=== PATIENT | male | born 1955 | race Caucasian/White ===

== ENCOUNTER 2016-08-08 16:15 | Emergency (ER) | payer OTHER ==
[~2016-08-08] VITALS: Ht 182.9 cm; Wt 120.2 kg
[~2016-08-08 16:15] MED LIST: AZOR 5 MG-20 MG1 TAB PO; GABAPENTIN; PERCOCET; SIMVASTATIN5 M1 PO
--- NOTE | 2016-08-08 17:21 | NUR ---
PRESENTS TO ER W/C/O BACK PAIN. PT STATES HE HAS CHRONIC PAIN AND IS UNABLE TO REFILL HIS PAIN MEDICATION UNTIL TOMORROW AND HAS SEVERE PAIN. HX SPINAL CORD INJURY, DM, SEIZURE DISORDER, HTN; DENIES N/V/D; SKIN IS PINK/WARM/DRY; AAOX4 WITH EVEN AND STEADY GAIT; LUNGS CLEAR BL; HR EVEN AND REGULAR; PT DENIES ANY FEVER, CP, SOB, OR COUGH AT THIS TIME; PATIENT STATES PAIN OF 10/10 AT THIS TIME; VSS; PATIENT POSITIONED FOR COMFORT; HOB ELEVATED; BEDRAILS UP X2; BED DOWN. ER MD MADE AWARE OF PT STATUS.
[2016-08-08] MEDS ORDERED: KETOROLAC 60 MG/2 ML VIAL IM ONE (18:00)
[2016-08-08] MEDS ORDERED: HYDROcodone/APAP 5/325 MG 1 TAB TAB PO ONE (18:00)
--- NOTE | 2016-08-08 19:13 | NUR ---
REPORT GIVEN TO ELI TROY
[2016-08-08] MEDS ORDERED: ALBUTEROL SULFATE/IPRATROPIU 3 ML SOL IH ONE (19:25)
[2016-08-08] MEDS ORDERED: HYDROmorphone 1 MG/ML AMP IM ONE (19:25)
--- NOTE | 2016-08-08 19:33 | NUR ---
REPORT GIVEN TO ELI FRANCISCO. TRANSFER OF CARE AT THIS TIME
--- NOTE | 2016-08-08 19:34 | NUR ---
RECEIVED REPORT FROM ELI TROY FOR TRANSFER OF CARE.
[2016-08-08 20:08] VITALS: BP 148/88
--- NOTE | 2016-08-08 20:08 | NUR ---
Patient discharged with v/s stable. Written and verbal after care instructions given and explained. Patient alert, oriented and verbalized understanding of instructions. Ambulatory with steady gait. All questions addressed prior to discharge. ID band removed. Patient advised to follow up with PMD. NO Rx WERE given. Patient educated on indication of medication including possible reaction and side effects. Opportunity to ask questions provided and answered.
== END 2016-08-08 20:08 | disposition home or self-care (01) ==
LOC: MED 16:15
DX: M54.6 Pain in thoracic spine (principal); G89.29 Other chronic pain; M54.2 Cervicalgia; J45.909 Unspecified asthma, uncomplicated; E11.9 Type 2 diabetes mellitus without complications; I10 Essential (primary) hypertension; F17.200 Nicotine dependence, unspecified, uncomplicated
CPT/HCPCS: 94640; 96372; 99284; J1170; J1885; J7620

== ENCOUNTER 2017-02-21 17:35 | Inpatient (IN) | payer OTHER ==
[~2017-02-21] VITALS: Ht 182.9 cm; Wt 115.2 kg
[~2017-02-21 17:35] MED LIST changes: +AMLO1TAB32 PO; -AZOR 5 MG-20 MG1 TAB PO; +SIMV5TAB6 PO; -SIMVASTATIN5 M1 PO
--- NOTE | 2017-02-21 17:35 | NUR ---
PATIENT BIBA TO BED 3 AT THIS TIME.
[2017-02-21 17:43] VITALS: BP 189/88
[2017-02-21] MEDS ORDERED: NACL 0.9% 500 ML IV ONE ×2 (17:45)
[2017-02-21] MEDS ORDERED: MORP30CE21 PO (17:54)
[2017-02-21] MEDS ORDERED: [UNRECOGNIZED DRUG - CODE] PO (17:54)
[2017-02-21] MEDS ORDERED: CELE200C PO (17:54)
[2017-02-21] MEDS ORDERED: LEVE1000 PO (17:54)
[2017-02-21] MEDS ORDERED: ACET-5636 PO (17:54)
[2017-02-21] MEDS ORDERED: CLON0.1T79 PO (17:54)
[2017-02-21] MEDS ORDERED: METF100028 PO (17:54)
[2017-02-21] MEDS ORDERED: DILT120C10 PO (17:54)
[2017-02-21] MEDS ORDERED: GLIP10TA12 PO (17:54)
[2017-02-21] MEDS ORDERED: GEMF600T6 PO (17:54)
[2017-02-21] MEDS ORDERED: OMEP40EC1 PO (17:54)
[2017-02-21] MEDS ORDERED: GABA300C1 PO ×2 (17:54)
[2017-02-21] MEDS ORDERED: ESOM40EC PO (18:00)
[2017-02-21 18:47] LABS: HEMATOCRIT 45.9 % (36-52); HEMOGLOBIN 15.4 g/dL (12.0-18.0); MEAN CORPUSCULAR HEMOGLOBIN 30 pg (27-31); MEAN CORPUSCULAR HGB CONC 34 g/dL (33-37); MEAN CORPUSCULAR VOLUME 90 fL (80-94); PLATELET COUNT (AUTO) 218 K/uL (140-450); RED BLOOD CELL COUNT(AUTO) 5.09 MIL/uL (4.20-6.10); RED CELL DISTRIBUTION WIDTH 15.7 % (11.6-13.7); WHITE BLOOD COUNT (AUTO) 11.5 K/uL (4.8-10.8)
[2017-02-21] MEDS ORDERED: KETOROLAC 30 MG/ML VIAL IVP ONE (18:50)
[2017-02-21 19:15] LABS: LYMPHOCYTES % (MANUAL) 13 % (20-46); METAMYELOCYTES % 1 % (0-0); MONOCYTES % (MANUAL) 4 % (5-12); MYELOCYTES % 3 % (0-0); PROMYELOCYTES % 1 % (0-0)
[2017-02-21 19:20] LABS: ANION GAP 15.9 (8-16); CREATININE 0.9 mg/dL (0.7-1.3); POTASSIUM 4.9 mmol/L (3.5-5.1); TOTAL BILIRUBIN 22.8 mg/dL (0.0-1.0)
[2017-02-21] MEDS ORDERED: MORPHINE SULFATE 4 MG/ML SYR IVP ONE (19:30)
[2017-02-21] MEDS ORDERED: NACL 0.9% 1,000 ML IV ONE (19:30)
[2017-02-21] MEDS ORDERED: cefTRIAXone 1,000 MG VIAL ONE ×2 (20:10→23:00)
--- NOTE | 2017-02-21 20:26 | NUR ---
ASSUMED CARE FOR CLIENT,CLIENT C/O ABDOMINAL/BLADDER/LOWER BACK PAIN,CLIENT SQUIRMING AROUND IN BLEED,ACCIDENTLY PULL OUT 1 OF 2 IV SITE.CLIENT CLEANED UP,STRAIGHT CATH CHANGED TO SAUER PER DR. NEIL,CLIENT ADMITTED,URINE SAMPLE ATTAINED,PRE-LABBED,IV FLUIDS 1 LITER STARTED,CLIENT MEDICATED FOR PAIN,AND INFECTION
[2017-02-21] MEDS: NACL 0.9% 1,000 ML IV SCH (20:32)
[2017-02-21] MEDS ORDERED: MORPHINE SULFATE 2 MG/ML SYR IVP PRN (20:35)
[2017-02-21] MEDS ORDERED: HYDROcodone/APAP 7.5/325 MG 1 TAB PO PRN (20:35)
[2017-02-21] MEDS ORDERED: DOCUSATE SODIUM 100 MG GELCAP PO PRN (20:35)
[2017-02-21] MEDS ORDERED: ACETAMINOPHEN 325 MG TAB PO PRN (20:35)
[2017-02-21] MEDS ORDERED: ONDANSETRON 4 MG/2 ML VIAL IM/IVP PRN (20:35)
[2017-02-21] MEDS ORDERED: KETOROLAC 30 MG/ML VIAL IVP PRN (20:40)
[2017-02-21 21:11] LABS: CHOL/HDL RATIO 9.3 (1-4.5); FREE T4 (FREE THYROXINE) 2.12 ng/dL (0.76-1.46); MAGNESIUM 1.3 mg/dL (1.8-2.4); PHOSPHORUS 1.5 mg/dL (2.5-4.9); THYROID STIMULATING HORMONE 0.34 uIU/mL (0.34-3.74)
--- NOTE | 2017-02-21 21:33 | NUR ---
REPORT GIVEN TO T[employer] ASSIGNMENT EDITOR NURSE,CLIENT IS ADMITTED.CLIENT REMAINS ALERT & ORIENTED X3,SOMEAGITATION NOTED,PAIN LEVEL 3-4/10 AT THIS TIME DOWN FROM 9-10 PER CLIENT.VITAL SIGNS STABLE AND INPROVE MORE CLIENT STAY.HL24 G LEFT THUMB INTACT
--- NOTE | 2017-02-21 21:40 | NUR ---
PT CAME IN FROM ER VIA [facility]. PT IS AAOX3, HE IS ON ROOM AIR. PT SKIN IS INTACT, BUT PT IS JAUNDICED, EYES ARE YELLOW TOO. PT HAS 24 GAUGE IV TO THE LEFT THUMB. PT HAS A SAUER CATHETER IN PLACE DRAINING URINE THAT IS VERY DARK IN COLOR. DISCUSSED PLAN OF CARE WITH PT, PT VERBALIZED UNDERSTANDING. BED IN LOW POSITION, CALL LIGHT WITHIN REACH. WILL CONTINUE TO MONITOR.
[2017-02-21] MEDS ORDERED: [UNRECOGNIZED DRUG - OTHER] PO SCH (21:55)
[2017-02-21 22:18] LABS: APPEARANCE,URINE HAZY (CLEAR); BILIRUBIN,URINE 3+ (NEGATIVE); BLOOD, URINE 2+ (NEGATIVE); COLOR,URINE BROWN (YELLOW); LEUKOCYTE ESTERASE ,URINE NEGATIVE (NEGATIVE); NITRITE, URINE NEGATIVE (NEGATIVE); PH,URINE 5.5 (5.0-9.0); UGLUCOSE NEGATIVE (NEGATIVE)
[2017-02-21] MEDS ORDERED: MAG SULF 2000 MG/WATER PREMIX 50 ML IV ONE (22:25)
[2017-02-21] MEDS ORDERED: SODIUM PHOSPHATE 15 MMOLE in NACL 0.9% 250 ML IV ONE (22:25)
[2017-02-21 22:42] LABS: RBC,URINE 3-10 (FEW) /HPF (0-5); WBC,URINE 0-5 (RARE) /HPF (0-5)
[2017-02-21 22:43] LABS: COARSE GRANULAR CASTS,URINE 0-10 /LPF (None Seen); HYALINE CASTS, URINE 0-10 /LPF (None Seen)
[2017-02-21 22:45] LABS: BARBITURATE, URINE NEG. ng/ml (NEG <=200); BENZODIAZEPINE, URINE NEG. ng/mL (NEG <=200); CANNABINOID, URINE POS. ng/mL (NEG <=50); COCAINE, URINE NEG. ng/mL (NEG <=300); OPIATE, URINE POS. ng/mL (NEG <=2000); PHENCYCLIDINE SCREEN,URINE NEG. ng/mL (NEG <=25)
--- NOTE | 2017-02-21 23:05 | NUR ---
ASIYA BENSON TOOK PT FOR HEAD CT VIA [employer]. PT IN STABLE CONDITION.
[2017-02-21] MEDS ORDERED: LACTULOSE 20 GM/30 ML UDC PO SCH (23:10)
--- NOTE | 2017-02-21 23:30 | NUR ---
PT BACK IN ROOM FROM HEAD CT. PT STABLE, WITHOUT SIGNS OF DISTRESS. BED IN LOW POSITION, CALL LIGHT WITHIN REACH. WILL CONTINUE TO MONITOR.
[2017-02-22] VITALS: BP 154/75
[2017-02-22] MEDS ORDERED: LACTULOSE 20 GM/30 ML UDC PO SCH ×3 (01:20→09:00)
[2017-02-22] MEDS: LACTULOSE 20 GM/30 ML UDC PO SCH ×4 (01:26→16:09)
[2017-02-22] MEDS: NACL 0.9% 1,000 ML IV SCH ×2 (01:32→06:29)
--- NOTE | 2017-02-22 01:35 | NUR ---
PT WAS IN A LOT OF PAIN. ADMINISTERED TORADOL VIA IV. PT TOLERATED WELL. PT IN STABLE CONDITION. NO SIGNS OF DISTRESS NOTED. BED IN LOW POSITION, CALL LIGHT WITHIN REACH. WILL CONTINUE TO MONITOR.
--- NOTE | 2017-02-22 03:35 | NUR ---
PT SLEEPING, IN STABLE CONDITION, NO SIGNS OF DISTRESS NOTED. BED IN LOW POSITION, CALL LIGHT WITHIN REACH. WILL CONTINUE TO MONITOR.
[2017-02-22 04:00] VITALS: BP 129/88
--- NOTE | 2017-02-22 05:42 | NUR ---
PT IS AGITATED, PT PULLED OUT IV. THERE WAS BLOOD AND VOMIT ON THE FLOOR AND SHEETS. CHANGED SHEETS, AND CLEANED SPOTS OFF FLOOR. PT THEN REQUESTED FOR HELP AMBULATING TO THE RESTROOM, WHERE HE HAD A BOWEL MOVEMENT. PT THEN RETURNED SAFELY TO BED. BED IN LOW POSITION, CALL LIGHT WITHIN REACH. WILL CONTINUE TO MONITOR.
[2017-02-22 06:22] LABS: HEMATOCRIT 44.5 % (36-52); HEMOGLOBIN 14.7 g/dL (12.0-18.0); MEAN CORPUSCULAR HEMOGLOBIN 30 pg (27-31); MEAN CORPUSCULAR HGB CONC 33 g/dL (33-37); MEAN CORPUSCULAR VOLUME 91 fL (80-94); PLATELET COUNT (AUTO) 256 K/uL (140-450); RED BLOOD CELL COUNT(AUTO) 4.91 MIL/uL (4.20-6.10); RED CELL DISTRIBUTION WIDTH 15.9 % (11.6-13.7); WHITE BLOOD COUNT (AUTO) 15.1 K/uL (4.8-10.8)
--- NOTE | 2017-02-22 06:29 | NUR ---
NATE FROM ER STARTED A 22 GAUGE IV ON THE PATIENT'S RIGHT THUMB. PT IS STABLE, NO SIGNS OF DISTRESS NOTED. BED IN LOW POSITION, CALL LIGHT WITHIN REACH. WILL CONTINUE TO MONITOR.
[2017-02-22 06:36] LABS: PROTHROMBIN TIME 39.9 secs (10.8-13.4)
[2017-02-22 07:05] LABS: ALBUMIN 2.8 g/dL (3.4-5.0); ANION GAP 19.8 (8-16); CARBON DIOXIDE 21.7 mmol/L (21-32); CREATININE 1.1 mg/dL (0.7-1.3); MAGNESIUM 1.8 mg/dL (1.8-2.4); PHOSPHORUS 2.3 mg/dL (2.5-4.9); POTASSIUM 4.5 mmol/L (3.5-5.1); TOTAL BILIRUBIN 22.4 mg/dL (0.0-1.0)
--- NOTE | 2017-02-22 07:20 | NUR ---
ENDORSED PT TO DAY SHIFT RN FOR CONTINUITY OF CARE, PT IN STABLE CONDITION.
--- NOTE | 2017-02-22 07:21 | NUR ---
RECEIVED HANDOFF REPORT FROM PM RN. PATIENT A&OX1. PATIENT SLEEPING. IV SITE PATENT AND INTACT. SAUER PATENT AND INTACT. SAFETY MEASURES ENSURED. CALL LIGHT WITHIN REACH. WILL CONTINUE TO MONITOR.
[2017-02-22 07:55] LABS: LYMPHOCYTES % (MANUAL) 7 % (20-46); MONOCYTES % (MANUAL) 4 % (5-12)
[2017-02-22 08:00] VITALS: BP 160/76
[2017-02-22] MEDS: DEXT 5% / NACL 0.45% 1,000 ML IV SCH ×4 (08:05→23:05)
[2017-02-22] MEDS ORDERED: DEXTROSE 50% 50 ML SYR IVP PRN (08:15)
[2017-02-22] MEDS ORDERED: KETOROLAC 30 MG/ML VIAL IVP PRN (08:15)
[2017-02-22] MEDS: PANTOPRAZOLE 40 MG TABEC PO SCH (09:00)
[2017-02-22] MEDS ORDERED: glipiZIDE 10 MG TAB PO SCH (09:00)
[2017-02-22] MEDS ORDERED: levETIRAcetam 500 MG TAB PO SCH (09:00)
[2017-02-22] MEDS ORDERED: GABAPENTIN 300 MG CAP PO SCH ×2 (09:00→21:00)
[2017-02-22] MEDS ORDERED: GEMFIBROZIL 600 MG TAB PO SCH ×2 (09:00)
[2017-02-22] MEDS ORDERED: metFORMIN 500 MG TAB PO SCH (09:00)
[2017-02-22] MEDS ORDERED: DILTIAZEM 120 MG CAPER PO SCH (09:00)
[2017-02-22] MEDS ORDERED: CELECOXIB 100 MG CAP PO SCH ×2 (09:00)
[2017-02-22] MEDS ORDERED: DILTIAZEM HCL PO SCH (09:00)
[2017-02-22] MEDS: DILTIAZEM 120 MG CAPER PO SCH (09:34)
[2017-02-22] MEDS: LACTOBACILLUS RHAMNOSUS GG 1 EACH CAP PO SCH (09:34)
--- NOTE | 2017-02-22 09:35 | NUR ---
AM MEDICATIONS GIVEN WITH EDUCATION. PT UNABLE TO COMPREHEND. PT UNABLE TO SWALLOW PILLS AT THIS TIME. PT HAS NO PROBLEM SWALLOWING LIQUIDS. AM MEDS CRUSHED AND ADMINISTERED. KEPPRA AND PROTONIX HELD DUE TO UNABLE TO CRUSH. DR. MCDANIEL MADE AWARE.
--- NOTE | 2017-02-22 09:49 | NUR ---
PATIENT HAS BEEN SCREENED AND CATEGORIZED HIGH NUTRITION RISK. PATIENT WILL BE SEEN WITHIN 1-2 DAYS OF ADMISSION. 02/22/17-02/23/[address]
[2017-02-22] MEDS: levETIRAcetam 1,000 MG in NACL 0.9% 100 ML IV SCH ×2 (11:35→21:42)
[2017-02-22] MEDS: BLOOD GLUCOSE MONITORING 1 DEV DEV FS SCH ×3 (11:48→20:37)
--- NOTE | 2017-02-22 11:56 | NUR ---
02/22/17 RD INITIAL ASSESSMENT COMPLETED PLEASE REFER TO NUTRITION ASSESSMENT UNDER CARE ACTIVITY FOR ESTIMATED NUTRITIONAL NEEDS. 1. CONTINUE NPO DIET 2. WHEN MEDICALLY FEASIBLE, INITIATE CLEAR LIQUID DIET ADVANCE TOLERATE TO LOW FAT DIET 3. RD TO FOLLOW UP WITHIN 2-3 DAYS; HIGH RISK KLARISSA AL, AYAN
[2017-02-22 12:00] VITALS: BP 183/94
[2017-02-22] MEDS ORDERED: cloNIDine 0.1 MG TAB PO SCH ×2 (12:00→13:00)
[2017-02-22] MEDS: cloNIDine 0.1 MG TAB PO SCH ×3 (12:42→20:10)
[2017-02-22] MEDS: GABAPENTIN 300 MG CAP PO SCH (12:46)
--- NOTE | 2017-02-22 12:53 | NUR ---
DISCONTINUED SAUER PER MD. URINE DARK WOODROW IN COLOR 600ML. NO SIGNS OR SYMPTOMS OF ACUTE DISTERSS NOTED. PATIENT TOLERATED WELL. CALL LIGHT WITHIN REACH WILL CONTINUE TO MONITOR.
[2017-02-22] MEDS ORDERED: SODIUM PHOS / POTASSIUM PHOS 1 PKT PDR PO SCH (15:15)
[2017-02-22 16:00] VITALS: BP 153/87
[2017-02-22] MEDS: metFORMIN 500 MG TAB PO SCH (16:09)
--- NOTE | 2017-02-22 16:22 | NUR ---
PATIENT AWAKE IN BED. FLACC 0. NO SIGNS OR SYMPTOMS OF ACUTE DISTRESS NOTED. IV OUT, WILL INSERT NEW ONE. CALL LIGHT WITHIN REACH. WILL CONTINUE TO MONITOR.
--- NOTE | 2017-02-22 19:24 | NUR ---
ENDORSED PLAN OF CARE TO PM RN. PATIENT STABLE. NO SIGNS OR SYMPTOMS OF ACUTE DISTRESS NOTED. CALL LIGHT WITHIN REACH.
--- NOTE | 2017-02-22 19:30 | NUR ---
RECEIVED REPORT FROM DAY RN, PATIENT IS AWAKE AND CONFUSED, NO S/S OF ACUTE DISTRESS NOTED, RESPIRATION EVEN AND UNLABORED. NO IV ACCESS AT THIS TIME, CHARGE NURSE IS AWARE. CALL LIGHT WITHIN REACH, INFORMED PATIENT TO USE CALL LIGHT WHENEVER HE NEEDS TO USE THE BATHROOM. BED IS AT THE LOWEST POSITION, SIDE RAILS UP X2, WILL CONTINUE TO MONITOR.
[2017-02-22 20:00] VITALS: BP 144/75
--- NOTE | 2017-02-22 20:53 | NUR ---
NEW IV 22G STARTED ON RT FOREARM. BS 48, DEXTROSE 50% IVP GIVEN, REASSESS THE BS, READ 174. PATIENT IS RESTING IN BED, NO S/S OF ACUTE DISTRESS, RESPIRATION EVEN AND UNLABORED, WILL CONTINUE TO MONITOR.
[2017-02-22] MEDS ORDERED: levETIRAcetam 1,000 MG in NACL 0.9% 100 ML IV SCH (21:00)
--- NOTE | 2017-02-22 23:56 | NUR ---
NOTED PATIENT VOIDED IN THE BED, ASSISTED DIVISION FIELD INSPECTOR CHANGED GOWN, AND BED LINEN, REPOSITIONED PATIENT TO HIS COMFORTABLE POSITION. RESPIRATION EVEN AND UNLABORED, WILL CONTINUE TO MONITOR.
[2017-02-23] VITALS: BP 150/76
--- NOTE | 2017-02-23 01:23 | NUR ---
PT IS SLEEPING AT THIS TIME. NO S/S OF ACUTE DISTRESS NOTED, RESPIRATION EVEN AND UNLABORED, CALL LIGHT WITHIN REACH, SAFETY MEASURE ENSURED, WILL CONTINUE TO MONITOR.
--- NOTE | 2017-02-23 02:15 | NUR ---
NOTED HEART RATE 133. MADE DR. MENDES AWARE.
--- NOTE | 2017-02-23 02:17 | NUR ---
DR. MENDES AT BEDSIDE ASSESS THE PATIENT.
[2017-02-23] MEDS ORDERED: ADENOSINE 6 MG/2 ML VIAL IVP SCH (02:55)
[2017-02-23] MEDS ORDERED: DILTIAZEM 25 MG/5 ML VIAL IVP ONE ×4 (03:10→04:05)
--- NOTE | 2017-02-23 03:25 | NUR ---
PER DR. MENDES GIVE CARDIZEM 10MG IV
--- NOTE | 2017-02-23 03:39 | NUR ---
BP 152/90, HR 150. O2SAT 96%
[2017-02-23 04:00] VITALS: BP 140/74
--- NOTE | 2017-02-23 04:16 | NUR ---
BP 140/74, HR 93, O2SAT 96%, RR 20, T98.3. CALL LIGHT WITHIN REACH, SAFETY MEASURE ENSURED, WILL CONTINUE TO MONITOR.
[2017-02-23] MEDS: DEXT 5% / NACL 0.45% 1,000 ML IV SCH ×2 (04:22→09:35)
[2017-02-23 06:15] LABS: HEMATOCRIT 43.8 % (36-52); HEMOGLOBIN 14.5 g/dL (12.0-18.0); MEAN CORPUSCULAR HEMOGLOBIN 30 pg (27-31); MEAN CORPUSCULAR HGB CONC 33 g/dL (33-37); MEAN CORPUSCULAR VOLUME 90 fL (80-94); PLATELET COUNT (AUTO) 254 K/uL (140-450); RED BLOOD CELL COUNT(AUTO) 4.87 MIL/uL (4.20-6.10); RED CELL DISTRIBUTION WIDTH 16.8 % (11.6-13.7); WHITE BLOOD COUNT (AUTO) 11.2 K/uL (4.8-10.8)
--- NOTE | 2017-02-23 06:20 | NUR ---
PATIENT STATED, "PAIN" AND INDICATED PAIN LEVEL 5/10, HE POINTED THE AREA AROUND STOMACH WELL. PAIN MEDICATION GIVEN ORDERED. WILL CONTINUE TO MONITOR.
[2017-02-23 06:22] LABS: T4 (THYROXINE) 11.1 ug/dL (4.5-12.0)
[2017-02-23] MEDS: BLOOD GLUCOSE MONITORING 1 DEV DEV FS SCH ×4 (06:34→18:22)
[2017-02-23 06:36] LABS: ANION GAP 14.2 (8-16); CARBON DIOXIDE 24.6 mmol/L (21-32); CREATININE 1.1 mg/dL (0.7-1.3); POTASSIUM 3.8 mmol/L (3.5-5.1)
[2017-02-23] MEDS: INSULIN LISPRO SLIDING SCALE 100 UNITS/ML VIAL SUBQ PRN (06:40)
[2017-02-23 06:48] LABS: MAGNESIUM 1.7 mg/dL (1.8-2.4)
--- NOTE | 2017-02-23 07:24 | NUR ---
ENDORSED THE PLAN OF CARE TO DAY RN. PATIENT IS SLEEPING AND IN STABLE CONDITION, NO ACUTE DISTRESS AND RESPIRATION EVEN AND UNLABORED.
--- NOTE | 2017-02-23 07:25 | NUR ---
RECEIVED REPORT FROM THE SOUND PERSON NURSE AT BEDSIDE FOR CONTINUITY OF CARE. PT IS SOUND ASLEEP. WILL COME BACK TO ASSESS PT. PER RN, PT IS CONFUSED, AOX1 OR 2. PT KNOWS HIS NAME AND ABLE TO LET US KNOW IF HE NEEDS PAIN MEDS. BUT OTHER ELSE. PER RN, PT HAD AN EPISODE OF PVC. MD WAS NOTIFIED AND ORDERS RECEIVED. PT'S SKIN IS INTACT. IV ON R FA 22G D5 1/2 NS RUNNING AT 200ML. IT IS WRAPPED W/GAUZE AND HAS A SLEEVE ON. PT IS A HARD STICK. WE WILL CONTINUE TO MONITOR PT.
[2017-02-23 08:00] VITALS: BP 135/73
--- NOTE | 2017-02-23 08:00 | NUR ---
PT V/S WITHIN NORMAL RANGE. PT IS ALERT. INTRODUCED MYSELF AND UPDATED THE BOARD. PT IS JAUNDICED. DENIES ABD PAIN. ABD DISTENDED. NO COMPLAINTS AT THIS TIME. WILL BE BACK WITH MORNING MEDS.
[2017-02-23 08:50] LABS: HEPATITIS A ANTIBODY IGM Negative (Negative); HEPATITIS B SURFACE AB Non Reactive (.)
[2017-02-23] MEDS: LACTULOSE 20 GM/30 ML UDC PO SCH ×3 (09:22→20:39)
[2017-02-23 09:25] LABS: HEPATITIS B SURFACE ANTIGEN NEGATIVE (NEGATIVE)
[2017-02-23] MEDS: LACTOBACILLUS RHAMNOSUS GG 1 EACH CAP PO SCH (09:27)
[2017-02-23] MEDS: cloNIDine 0.1 MG TAB PO SCH ×4 (09:27→19:59)
[2017-02-23 09:28] LABS: HEPATITIS B CORE AB TOTAL POSITIVE (NEGATIVE)
[2017-02-23] MEDS: GABAPENTIN 300 MG CAP PO SCH (09:30)
[2017-02-23] MEDS: metFORMIN 500 MG TAB PO SCH (09:31)
[2017-02-23] MEDS: levETIRAcetam 1,000 MG in NACL 0.9% 100 ML IV SCH ×2 (09:34→21:16)
[2017-02-23] MEDS: DILTIAZEM 120 MG CAPER PO SCH (09:34)
[2017-02-23] MEDS: PANTOPRAZOLE 40 MG TABEC PO SCH (09:34)
--- NOTE | 2017-02-23 09:43 | NUR ---
RN STUDENT AND INSTRUCTOR FINISHED GIVING MEDS TO PT. CRUSHED MEDS AND MIXED WITH APPLE SAUCE. ADMINISTERED ABX AND NEW D5 1/2 NS BAG. PT TOLERATED WELL. WILL CONTINUE TO MONITOR PT.
[2017-02-23 11:13] LABS: LYMPHOCYTES % (MANUAL) 21 % (20-46); MONOCYTES % (MANUAL) 4 % (5-12)
--- NOTE | 2017-02-23 11:20 | NUR ---
DR. BRAUN/GI CONSULT HERE TO ASSESS PT.
[2017-02-23 11:51] VITALS: BP 132/65
[2017-02-23] MEDS: DEXTROSE 10% 1,000 ML IV SCH ×2 (12:16→23:55)
--- NOTE | 2017-02-23 12:23 | NUR ---
ADMINISTERED NEW ORDER OF FLUIDS: D10 AT 80ML/HR. HELD THE CLONIDINE D/T LOW HR ON TELE STRIP . RECHECKED BP 141/72, HR 71. WILL CONTINUE TO MONITOR PT.
--- NOTE | 2017-02-23 14:11 | NUR ---
PT SLEEPING SOUNDLY. NO SIGNS OF DISTRESS. WILL CONTINUE TO MONITOR PT.
[2017-02-23 16:00] VITALS: BP 151/77
--- NOTE | 2017-02-23 16:00 | NUR ---
PT GOT UP TO USE THE BATHROOM. ASSISTED PT TO THE BATHROOM. CHANGED LINENS. PT BACK IN BED. REQUESTED ICE CHIPS. PT THIRSTY. GOT PT SOME. WILL CONTINUE TO MONITOR PT.
[2017-02-23] MEDS ORDERED: LACTULOSE 20 GM/30 ML UDC PO SCH (17:00)
--- NOTE | 2017-02-23 18:28 | NUR ---
PT SLEEPING SOUNDLY. NO SIGNS OF DISTRESS. WILL CONTINUE TO MONITOR PT.
--- NOTE | 2017-02-23 19:25 | NUR ---
ENDORSED PT TO THE DRILL SETUP OPERATOR NURSE AT BEDSIDE FOR CONTINUITY OF CARE. PT IS IN STABLE CONDITION.
--- NOTE | 2017-02-23 19:36 | NUR ---
RECEIVED REPORT FROM DAY RN. RESTING IN BED, AWAKE ALERT ORIENTED X3, NO S/S OF ACUTE DISTRESS NOTED, RESPIRATION EVEN AND UNLABORED. IV PATENT AND INTACT, INFUSING DEXTROSE 10% AT 80ML/HR, PLAN OF CARE DISCUSSED, VERBALIZED UNDERSTANDING, CALL LIGHT WITHIN REACH, SAFETY MEASURE ENSURED, WILL CONTINUE TO MONITOR.
[2017-02-23 20:00] VITALS: BP 129/64
[2017-02-23] MEDS: RIFAXIMIN 550 MG TAB PO SCH (20:40)
--- NOTE | 2017-02-23 21:12 | NUR ---
PATIENT VOIDED X1 IN THE BATHROOM. RESTING IN BED, PM MEDICATION GIVEN, TOLERATED WELL. NO S/S OF ACUTE DISTRESS NOTED, RESPIRATION EVEN AND UNLABORED, CALL LIGHT WITHIN REACH, SAFETY MEASURE ENSURED, WILL CONTINUE TO MONITOR.
--- NOTE | 2017-02-23 22:48 | NUR ---
BM X1. PATIENT RESTING IN BED, NO S/S OF ACUTE DISTRESS NOTED, RESPIRATION EVEN AND UNLABORED, SAFETY MEASURE ENSURED, WILL CONTINUE TO MONITOR.
[2017-02-24] VITALS (13 sets, daily range): BP systolic 137–184; BP diastolic 71–115
[2017-02-24] MEDS: BLOOD GLUCOSE MONITORING 1 DEV DEV FS SCH ×4 (00:05→17:23)
--- NOTE | 2017-02-24 00:06 | NUR ---
BS 156, PATIENT IS NPO, INSULIN DID NOT GIVE.
--- NOTE | 2017-02-24 00:15 | NUR ---
PATIENT BECAME AGITATED AND YELLED," I WANT SOME FRIED RICE, AND I WANT A DRINK." MADE DR. TOMLIN AWARE. DR. TOMLIN SAID," I WILL TALK TO THE PATIENT."
--- NOTE | 2017-02-24 01:43 | NUR ---
PATIENT PULL OUT HIS IV, TIP INTACT, NO ACTIVE BLEEDING NOTED. WILL START A NEW IV.
--- NOTE | 2017-02-24 02:42 | NUR ---
NEW IV, 22 G, RT FOREARM. PATIENT TOLERATED WELL.
[2017-02-24] MEDS: DEXTROSE 10% 1,000 ML IV SCH ×4 (03:15→22:15)
--- NOTE | 2017-02-24 03:53 | NUR ---
BP 167/71, HR 71, O2SAT 95%, DR. TOMLIN IS AWARE OF PATIENT'S BP AND HR. NO ORDER RECEIVED AT THIS TIME. PATIENT IS SLEEPING AT THIS TIME. NO S/S OF ACUTE DISTRESS NOTED, RESPIRATION EVEN AND UNLABORED, CALL LIGHT WITHIN REACH, SAFETY MEASURE ENSURED, WILL CONTINUE TO MONITOR.
[2017-02-24] MEDS: INSULIN LISPRO SLIDING SCALE 100 UNITS/ML VIAL SUBQ PRN ×3 (05:11→17:22)
--- NOTE | 2017-02-24 06:16 | NUR ---
PATIENT IS SLEEPING AT THIS TIME, NO S/S OF ACUTE DISTRESS NOTED, RESPIRATION EVEN AND UNLABORED, CALL LIGHT WITHIN REACH, SAFETY MEASURE ENSURED, WILL CONTINUE TO MONITOR.
[2017-02-24 06:59] LABS: ANION GAP 14.5 (8-16); CARBON DIOXIDE 25.1 mmol/L (21-32); CREATININE 0.9 mg/dL (0.7-1.3); POTASSIUM 4.6 mmol/L (3.5-5.1)
[2017-02-24 07:05] LABS: PROTHROMBIN TIME 59.5 secs (10.8-13.4)
--- NOTE | 2017-02-24 07:06 | NUR ---
RECEIVED CRITICAL LAB VALUE PT 59.5 INR 5.9
[2017-02-24 07:23] LABS: HEMATOCRIT 45.2 % (36-52); HEMOGLOBIN 15.2 g/dL (12.0-18.0); MEAN CORPUSCULAR HEMOGLOBIN 30 pg (27-31); MEAN CORPUSCULAR HGB CONC 34 g/dL (33-37); MEAN CORPUSCULAR VOLUME 90 fL (80-94); PLATELET COUNT (AUTO) 187 K/uL (140-450); RED BLOOD CELL COUNT(AUTO) 5.05 MIL/uL (4.20-6.10); RED CELL DISTRIBUTION WIDTH 17.3 % (11.6-13.7); WHITE BLOOD COUNT (AUTO) 9.7 K/uL (4.8-10.8)
--- NOTE | 2017-02-24 07:25 | NUR ---
DR. LYNCH IS AWARE THAT CRITICAL LAB VALUES PT 59.5, INR 5.9
[2017-02-24 07:28] LABS: LYMPHOCYTES % (MANUAL) 12 % (20-46); MONOCYTES % (MANUAL) 10 % (5-12)
--- NOTE | 2017-02-24 07:30 | NUR ---
ENDORSED PLAN OF CARE TO DAY RN, PATIENT IS IN STABLE CONDITION.
--- NOTE | 2017-02-24 07:31 | NUR ---
RECEIVED REPORT FROM THE NIGHTSHIFT NURSE AT BEDSIDE FOR CONTINUITY OF CARE. PT IS RESTING. DR. BRAUN IS HERE AND DR LYNCH, SAW PT. GAVE REPORT OF CRITICAL LABS TO MDS. PT 59.5, INR 5.9. MD AWARE. DR WILSON WROTE 2 RX'S FOR PT'S FAMILY TO PICKUP AND GET FILLED FOR PT. HE IS TO START [place] ONCE IT IS BROUGHT BACK TO THE HOSPITAL. WILL CALL FAMILY TODAY. ALSO ORDERED FLUID D10 INCREASE TO 120ML. ORDERED TRANSFER TO ICU FOR CLOSER OBSERVATION. WILL WORK ON ICU TRANSFER. PT V/S: BP 162.-/115, 98.4F, 70, 97% RESP 16. PT IS STILL VERY JAUNDICED. IV ON R FA 22 D10AT 80 NOW. WILL GIVE MORNING MEDS BEFORE TRANSFER.
[2017-02-24] MEDS: DILTIAZEM 120 MG CAPER PO SCH (08:07)
[2017-02-24] MEDS: RIFAXIMIN 550 MG TAB PO SCH ×2 (08:07→21:49)
[2017-02-24] MEDS: levETIRAcetam 500 MG TAB PO SCH ×2 (08:08→21:45)
[2017-02-24] MEDS: PANTOPRAZOLE 40 MG TABEC PO SCH (08:08)
[2017-02-24] MEDS: cloNIDine 0.1 MG TAB PO SCH ×8 (08:08→22:16)
[2017-02-24] MEDS: LACTOBACILLUS RHAMNOSUS GG 1 EACH CAP PO SCH (08:08)
[2017-02-24] MEDS: LACTULOSE 20 GM/30 ML UDC PO SCH ×4 (08:09→21:45)
--- NOTE | 2017-02-24 08:15 | NUR ---
ADMINISTERED MORNING MEDS. PT TOLERATED WELL. PT IS LETHARGIC. HAD TO KEEP WAKING HIM UP IN BETWEEN PILLS. BROKE LARGE PILLS IN HALF AND HE WAS ABLE TO SWALLOW THEM WITH WATER.
--- NOTE | 2017-02-24 08:50 | NUR ---
GAVE REPORT TO ELI PERRY AT ICU. WILL GET PT READY AND TRANSFER.
--- NOTE | 2017-02-24 09:00 | NUR ---
TRANSFERRED PT TO ICU. PUT HIM ON THE TRANSPORT MONITOR. ALL PERSONAL BELONGINGS TAKEN WITH PT.
--- NOTE | 2017-02-24 09:00 | NUR ---
RECEIVED PT FROM TELE UNIT. PT OPENS EYES TO VOICE AND VERBAL RESPONSIVE TO SIMPLE COMMANDS WITH CONFUSION. DENIES PAIN AT THIS TIME. NO S/SX OF ACUTE DISTRESS. JAUNDICE TO ALL BODY AND GENERALIZED WEAKNESS NOTED. IV SITE TO RFA WITH 22G. SR ON THE MONITOR. O2 SAT 98% ON ROOM AIR. SEIZURE PRECAUTION. SAFETY PRECAUTION. BED IN LOW POSITION, CALL LIGHT WITHIN REACH.
--- NOTE | 2017-02-24 09:27 | NUR ---
CALLED FAMILY, LEFT MESSAGE WITH STEVE. CALLED MOM. SPOKE TO HER. SHE WILL TRY AND GET A HOLD OF HER DAUGHTER. I HAVE THE 2 RX AND HOME MEDS WITH ME. WHEN FAMILY COMES BY TO DIRECTOR OF TEENAGE ACTIVITIES RX, WILL SEND HOME MEDS HOME.
[2017-02-24] MEDS ORDERED: PHYTONADIONE 10 MG/ML AMP IV ONE (09:30)
--- NOTE | 2017-02-24 11:03 | NUR ---
PT ASLEEP IN BED AND STABLE. WILL CONTINUE TO MONITOR
[2017-02-24] MEDS ORDERED: TENO300T2 PO ×2 (11:10→16:16)
[2017-02-24] MEDS ORDERED: ENTE0.5T2 PO (11:11)
--- NOTE | 2017-02-24 11:33 | NUR ---
PT HOME MEDS, PLACE IN MED BAG AND TOOK IT TO PHARMACY. WILL TAKE STICKER TO ICU TO PUT ON CHART.
--- NOTE | 2017-02-24 12:03 | NUR ---
PT TOLERATED MEDICATION WELL.
--- NOTE | 2017-02-24 12:30 | NUR ---
PER PHARMACY IV & IM VITAMIN K CONTRAINDICATED PT HAS NO ACTIVE BLEEDING RECOMMENDED ORAL VITAMIN K. NOTIFIED DR. LYNCH AND WILL FOLLOW UP ON ORDERS. Addendum: 02/24/17 at 1446 by Channing Elena RN CHARTED IM VITAMIN K CONTRAINDICATED FOR ACTIVE BLEEDING IN ERROR.
--- NOTE | 2017-02-24 12:30 | NUR ---
PT ASLEEP AND EASILY AWAKE TO VOICE. PT REFUSED LUNCH.
--- NOTE | 2017-02-24 14:04 | NUR ---
02/24/14 RD FOLLOW UP COMPLETED. PLEASE REFER TO NUTRITION PROGRESS NOTE UNDER CARE ACTIVITY FOR ESTIMATED NUTRITIONAL NEEDS. RD RECOMMENDATIONS: 1- RECOMMEND CONTINUE CLEAR LIQUID DIET 2- RECOMMEND ADVANCE DIET, TOLERATED AND MEDICALLY CLEARED, TO FULL LIQUID, SOFT, THEN LOW-FAT DIET. 3- RD FOLLOW UP IN 3-5 DAYS; MODERATE RISK. FÉLIX BUCKNER MBA, RD
--- NOTE | 2017-02-24 14:32 | NUR ---
PAGED DR. LYNCH REGARDING VITAMIN K ORDER FOR PT 59.5, INR 5.9. WILL FOLLOW UP ON ORDER
[2017-02-24] MEDS ORDERED: PHYTONADIONE 10 MG/ML AMP IM ONE (14:40)
--- NOTE | 2017-02-24 14:42 | NUR ---
RECEIVED CALL BACK FROM DR. LYNCH AND WILL FOLLOW UP ON ORDERS
--- NOTE | 2017-02-24 14:56 | NUR ---
DR. LYNCH AT BEDSIDE. MADE AWARE OF PT'S POOR INTAKE AND EPISODE OF PVC ON THE MONITOR
--- NOTE | 2017-02-24 16:00 | NUR ---
PT'S MOTHER AND SISTER AT BEDSIDE AND SPOKE WITH DR. LYNCH. INFORMED DR. LYNCH PT'S EKG RHYTHM WITH PROLONG QT INTERVAL
[2017-02-24] MEDS ORDERED: PATIENTS OWN TABLET PO SCH (16:20)
[2017-02-24] MEDS ORDERED: ED NON STOCK ORDER 1 EA MISC PO ONE (16:25)
--- NOTE | 2017-02-24 16:32 | NUR ---
CHECKED BP: 171/79. ADMINISTERED CLONIDINE ORDERED. PT TOLERATED ALL MEDS WELL. WILL CONTINUE TO MONITOR.
--- NOTE | 2017-02-24 18:30 | NUR ---
PT STABLE AND DENIES ANY PAIN AT THIS TIME. WILL CONTINUE TO MONITOR.
[2017-02-24 18:36] LABS: ALBUMIN 2.3 g/dL (3.4-5.0); BILIRUBIN,DIRECT 20.9 mg/dL (0.0-0.3); TOTAL BILIRUBIN 30.3 mg/dL (0.0-1.0)
--- NOTE | 2017-02-24 18:37 | NUR ---
PAGED DR. LYNCH REGARDING CRITICAL LAB RESULT
--- NOTE | 2017-02-24 18:56 | NUR ---
PAGED DR. DR. LYNCH AND AWAITING FOR CALL BACK
--- NOTE | 2017-02-24 18:58 | NUR ---
NOTIFIED DR. TOMLIN FOR CRITICAL LAB RESULT.
--- NOTE | 2017-02-24 19:15 | NUR ---
REPORT GIVEN TO ELI BERNSTEIN. PT FÁTIMA.
--- NOTE | 2017-02-24 19:22 | NUR ---
RECIEVED PT. SLEEPY BUT EASILY AROUSABLE, RESPIRATION EVEN AND UNLABORED, WITH JAUNDICE SKIN, , WITH S/S OF DISTRESS NOTED, WITH IVF D10 AT 120 ML/HOUR.
--- NOTE | 2017-02-24 22:23 | NUR ---
QC=562/90, MD TOMLIN WAS NOTIFIED WITH NEW ORDER
--- NOTE | 2017-02-24 22:25 | NUR ---
MD TOMLIN WAS NOTIFIED OF PT. BO=967/, NOT DECIDED TO GIVE IV BP MEDS.
[2017-02-24] MEDS ORDERED: ENALAPRILAT 2.5 MG/2 ML VIAL IVP PRN (22:30)
--- NOTE | 2017-02-24 22:45 | NUR ---
MD TOMLIN WAS NOTIFIED AGAIN , NO BP MEDS WAS GIVEN, UNDECIDED WHICH TO GIVE, RECOMMEND HER TO GIVE VASOTEC IV , OR LABETOLOL IV , INDUSTRIAL SPRAYPAINTER MR LEACH IN THE ICU AWARE OF THE EVENTS.
[2017-02-24] MEDS: ENALAPRILAT 2.5 MG/2 ML VIAL IVP PRN (23:09)
--- NOTE | 2017-02-24 23:22 | NUR ---
MD TOMLIN REFUSED CARDIOLOGY CONSULT / SCHOOL BUS ATTENDANT MR ERNIE BENITEZ
--- NOTE | 2017-02-24 23:23 | NUR ---
PT. IS MORE LETHARGIC, MD TOMLIN MADE AWARE
[2017-02-25] VITALS (14 sets, daily range): BP systolic 119–170; BP diastolic 67–103
[2017-02-25] MEDS: BLOOD GLUCOSE MONITORING 1 DEV DEV FS SCH ×4 (00:18→18:19)
[2017-02-25] MEDS: INSULIN LISPRO SLIDING SCALE 100 UNITS/ML VIAL SUBQ PRN ×3 (00:22→12:18)
[2017-02-25 04:46] LABS: HEMATOCRIT 45.8 % (36-52); MEAN CORPUSCULAR HEMOGLOBIN 30 pg (27-31); MEAN CORPUSCULAR HGB CONC 33 g/dL (33-37); MEAN CORPUSCULAR VOLUME 90 fL (80-94); PLATELET COUNT (AUTO) 250 K/uL (140-450); RED BLOOD CELL COUNT(AUTO) 5.09 MIL/uL (4.20-6.10); RED CELL DISTRIBUTION WIDTH 16.7 % (11.6-13.7); WHITE BLOOD COUNT (AUTO) 12.1 K/uL (4.8-10.8)
[2017-02-25 05:03] LABS: ANION GAP 10.9 (8-16); CARBON DIOXIDE 24.8 mmol/L (21-32); CREATININE 0.9 mg/dL (0.7-1.3)
[2017-02-25 05:04] LABS: POTASSIUM 2.7 mmol/L (3.5-5.1)
[2017-02-25 05:07] LABS: MAGNESIUM 1.5 mg/dL (1.8-2.4); PHOSPHORUS 1.8 mg/dL (2.5-4.9)
[2017-02-25] MEDS ORDERED: POTASSIUM CHLORIDE 40 MEQ, LIDOCAINE 1% 25 MG in NACL 0.9% 250 ML IV ONE (05:10)
[2017-02-25 05:13] LABS: EOSINOPHILS % (MANUAL) 1 % (0-4); LYMPHOCYTES % (MANUAL) 12 % (20-46); MONOCYTES % (MANUAL) 9 % (5-12)
--- NOTE | 2017-02-25 05:13 | NUR ---
PT. K=2.7, MD TOMLIN MADE AWARE
[2017-02-25] MEDS ORDERED: KCL 20 MEQ/WATER INJ PREMIX 100 ML IV ONE ×2 (05:25→06:55)
--- NOTE | 2017-02-25 05:33 | NUR ---
KCL 20MEQ IVPB X 1 STARTED, UNABLE TO VERIFY ADM. D/T PHARMACIST NEEDS TO VERIFY, MS [employer] UTILITY DIVISION PROJECT MANAGER NURSE MADE AWARE.
[2017-02-25] MEDS ORDERED: SODIUM PHOS / POTASSIUM PHOS 1 PKT PDR PO SCH (06:00)
[2017-02-25] MEDS ORDERED: MAG SULF 2000 MG/WATER PREMIX 100 ML IV ONE (06:00)
[2017-02-25] MEDS: ENALAPRILAT 2.5 MG/2 ML VIAL IVP PRN (06:43)
--- NOTE | 2017-02-25 06:52 | NUR ---
KCL=20MEQ IVPB GIVEN, TOTAL OF 40MEQ IVPB GIVEN
--- NOTE | 2017-02-25 07:26 | NUR ---
BP= STILL HIGH, VASOTEC IVP GIVEN
--- NOTE | 2017-02-25 07:30 | NUR ---
RECEIVED REPORT FROM CLINICAL NEUROPSYCHOLOGIST RN. PT IS LETHARGIC, UNABLE TO FOLLOW COMMAND, MAKING SOME NOISES OCCASIONALLY. DIFFUSE ICTERUS NOTED. BEDSIDE MONITOR SHOWS SR, BP 169/91, PER CLINICAL NEUROPSYCHOLOGIST NURSE HE GAVE VASOTEC AT 0643.PT ON ROOM AIR, O2 SAT 94%, NO S/S OF RESPIRATORY DISTRESS NOTED. LUNG SOUND CLEAR. ABDOMEN EXTENDED WITH ACTIVE BOWEL SOUND, ALL EXTREMITIES ARE FLACCID,IV SITE INTACT AND PATENT RUNNING D5 0.9 NS AT120 ML/HR AND K RIDER AT 50 MLS/HR. HOB ELEVATED 30 DEGREES WITH LOW BED POSITION, WILL CONTINUE TO MONITOR PT.
--- NOTE | 2017-02-25 07:31 | NUR ---
LUNG SOUND RHONCHI.
--- NOTE | 2017-02-25 08:00 | NUR ---
'S GROUP IN TO SEE PT, NOTIFIED PT LETHARGIC, UNABLE TO GIVE PO MEDS, WILL FOLLOW UP.
--- NOTE | 2017-02-25 08:30 | NUR ---
OGT INSERTION DONE, SMALL AMOUNT OF STOMACH SECRETION NOTED. CHARGE NURSE SHARON, TEST PREPARER HANY AND ME CHECKED PLACEMENT. RIGHT PLACEMENT.
[2017-02-25] MEDS: LACTOBACILLUS RHAMNOSUS GG 1 EACH CAP NG SCH (08:39)
[2017-02-25] MEDS: LACTULOSE 20 GM/30 ML UDC NG SCH ×4 (08:40→21:04)
[2017-02-25] MEDS ORDERED: cloNIDine 0.1 MG TAB ONE (08:46)
[2017-02-25] MEDS ORDERED: VIREAD 300 MG PO SCH (09:00)
[2017-02-25] MEDS ORDERED: LACTULOSE 20 GM/30 ML UDC PO SCH (09:00)
[2017-02-25] MEDS: levETIRAcetam 100 MG/ML ORASYR NG SCH ×2 (09:04→21:03)
[2017-02-25] MEDS: SODIUM PHOS / POTASSIUM PHOS 1 PKT PDR NG SCH (09:05)
[2017-02-25] MEDS: RIFAXIMIN 550 MG TAB NG SCH ×2 (09:05→21:03)
[2017-02-25] MEDS: VIREAD 300 MG NG SCH (09:11)
[2017-02-25] MEDS ORDERED: cloNIDine 0.1 MG TAB NG SCH (09:12)
--- NOTE | 2017-02-25 09:53 | NUR ---
NOTIFIED PT BP 180/97. VASOTEC 1.25 MG Q6H WAS GIVEN AT 0643, CATAPRES WAS GIVEN 0.1 MG AT 0916.
[2017-02-25] MEDS ORDERED: hydrALAZINE 20 MG/ML VIAL IVP PRN (09:55)
[2017-02-25] MEDS ORDERED: PROBIOTIC SCREEN 1 EA MISC MC PRN (10:10)
[2017-02-25 10:18] LABS: ANION GAP 14.4 (8-16); CARBON DIOXIDE 22.9 mmol/L (21-32); CREATININE 1.1 mg/dL (0.7-1.3); POTASSIUM 3.3 mmol/L (3.5-5.1)
--- NOTE | 2017-02-25 10:28 | NUR ---
BP125/61, HR 79 AT THIS TIME.
--- NOTE | 2017-02-25 10:35 | NUR ---
MODERATE AMOUNT OF YELLOW DIARRHEA NOTED, CLEANED PT.
--- NOTE | 2017-02-25 11:21 | NUR ---
PT BP 175/97, HR 91. APRESOLINE 5 MG IVP GIVEN.
--- NOTE | 2017-02-25 11:36 | NUR ---
CHANGED IV FLUID DEXTROSE 10% TO 30 MLS/HR PER ORDER.
[2017-02-25] MEDS: DEXTROSE 10% 1,000 ML IV SCH (11:37)
[2017-02-25] MEDS: cloNIDine 0.1 MG TAB NG SCH ×3 (12:07→20:46)
--- NOTE | 2017-02-25 12:21 | NUR ---
RECHECKED BP 164/95,HR 98.
--- NOTE | 2017-02-25 13:00 | NUR ---
NOTIFIED PT HAD SVT AT 1247 THEN CONVERTED TO SR.
--- NOTE | 2017-02-25 16:11 | NUR ---
PT UNRESPONSIVE TO NAME STIMULI.TURNED AND REPOSITIONED PT, PT HAD MODERATE AMOUNT OF YELLOWISH DIARRHEA, CLEANED PT. NO S/S OF RESPIRATORY DISTRESS NOTED.
--- NOTE | 2017-02-25 17:45 | NUR ---
PT HAD MODERATE AMOUNT OF YELLOWISH DIARRHEA, CLEANED PT,ORAL CARE GIVEN. BLAIR BATH GIVEN.
--- NOTE | 2017-02-25 18:00 | NUR ---
PT'S MOTHER AND SISTER STEVE AT BEDSIDE. PT'S SISTER WANTS TO TALK TO REGARDING TRANSFERRING TO HIGHER LEVEL FACILITY. PER PT'S SISTER , SHE TALKED TRANSFERRING WITH ANOTHER YESTERDAY. WILL CALL DR. MCDANIEL.
--- NOTE | 2017-02-25 18:15 | NUR ---
AND PT'S SISTER STEVE HAD A CONVERSION ON THE PHONE.
--- NOTE | 2017-02-25 19:26 | NUR ---
PT BP 160/100, HR 102. TOOK APRESOLINE FROM PYXIS AT 1914, RECHECKED BP AT 1924 SHOWS 141/87 , APRESOLINE NOT GIVEN. ENDORSED PT TO NFL PLAYER RN.
--- NOTE | 2017-02-25 19:30 | NUR ---
REPORT RECEIVED FROM ELI WILSON. PT EYES CLOSED AND NONVERBAL. CANNOT FOLLOW COMMANDS. BILATERAL UPPER AND LOWER EXTREMITIES FLACCID. ORAL-GASTRIC TUBE IN GASTRIC PLACE AND PATENT. NO RESIDUAL NOTED. RIGHT FOREARM PERIPHERAL IV #22. REMOVED THE LINE DUE TO INFILTRATION. BILATERAL LUNGS SOUNDS WITH CRACKLES. HOB KEPT ELEVATED TO 30 DEGREES. BILATERAL SCD NOTED. SKIN INTACT. NOTED LIQUID DARK YELLOW STOOL AND URINE SOAKED ON THE WHOLE SIZE LAI. PROVIDED DORIS CARE AND SKIN CARE. OFF LOADED BILATERAL HEELS AND REPOSITIONED. CALL LIGHT IN REACH AND BED IS KEPT TO THE LOWEST. WILL CONTINUE TO MONITOR.
--- NOTE | 2017-02-25 21:07 | NUR ---
DR. JANSEN AT BED SIDE. WILL FOLLOW UP WITH ORDERS.
--- NOTE | 2017-02-25 21:08 | NUR ---
UPDATED DR. JANSEN ABOUT PT'S CONDITION INCLUDING CRACKLES AUSCULTATED FROM BILATERAL LUNGS AND PT BEING UNABLE TO SWALLOW CLEAR LIQUID DIET AND ORAL GASTRIC TUBE IS FOR MEDS.
--- NOTE | 2017-02-25 21:15 | NUR ---
SCHEDULED MEDS ADMINISTERED ORDERED. ORAL GASTRIC TUBE SECURED TO THE LEFT CHEEK AND PLACEMENT CHECKED AND IN PLACE. NO RESIDUAL NOTED. ORAL MEDICATIONS ADMINISTERED VIA ORAL GASTRIC TUBE VIA GRAVITY. TOLERATED WELL. HOB KEPT ELEVATED 30 DEGREES. CALL LIGHT IN REACH AND BED IS KEPT TO THE LOWEST. WILL CONTINUE TO MONITOR.
--- NOTE | 2017-02-25 22:00 | NUR ---
INSERTED SAUER CATHETER 16FR/10CC WITH ASEPTIC TECHNIQUE ORDERED. CLEAR WOODROW COLOR URINE DRAINING VIA GRAVITY INTO THE SAUER BAG. SAUER WAS SECURED TO THE RIGHT INNER UPPER LEG. PT TOLERATED WELL.
--- NOTE | 2017-02-25 23:00 | NUR ---
PT EYES CLOSED. NOT AROUSABLE. SAUER DRAINING CLEAR WOODROW COLOR URINE VIA GRAVITY. IVF RUNNING TO RIGHT HAND PERIPHERAL LINE WITH NO S/SX OF INFILTRATION OR PHLEBITIS. FLACC=0. NO ACUTE DISTRESS NOTED. CONTINUING WITH CARDIAC MONITORING. WILL CONTINUE TO MONITOR.
[2017-02-26] VITALS (8 sets, daily range): BP systolic 123–155; BP diastolic 78–96
--- NOTE | 2017-02-26 | NUR ---
PT WITH NO S/SX OF ACUTE DISTRESS. CONTINUING WITH CARDIAC MONITORING. CALL LIGHT IN REACH AND BED IS TO THE LOWEST POSITION. BILATERAL S/R UP WITH PADS FOR SEIZURE PRECAUTIONS. WILL CONTINUE TO MONITOR.
[2017-02-26] MEDS: BLOOD GLUCOSE MONITORING 1 DEV DEV FS SCH ×3 (00:25→11:57)
--- NOTE | 2017-02-26 01:30 | NUR ---
PT WITH NO ACUTE DISTRESS. CONTINUE WITH CARDIAC MONITORING. CALL LIGHT IN REACH. BED TO THE LOWEST POSITION. HOB ELEVATED 30 DEGREES. BILATERAL S/R UP WITH PADS FOR SEIZURE PRECAUTION. WILL CONTINUE TO MONITOR.
--- NOTE | 2017-02-26 03:30 | NUR ---
PT NO ACUTE DISTRESS NOTED. CONTINUE WITH CARDIAC MONITORING. NO S/SX OF INFILTRATION OR PHLEBITIS ON RIGHT HAND PERIPHERAL IV SITE. DARK WOODROW COLOR URINE DRAINING VIA GRAVITY. EYE CLOSED. UNABLE TO FOLLOW COMMANDS. BILATERAL LUNGS AUSCULTATED WITH LESS CRACKLES COMPARE TO LAST ASSESSMENT. FLACC=0. CALL LIGHT IN REACH. BED TO THE LOWEST POSITION. BILATERAL S/R UP WITH PADS FOR SEIZURE PRECAUTION. WILL CONTINUE TO MONITOR.
[2017-02-26 05:08] LABS: HEMATOCRIT 49.9 % (36-52); HEMOGLOBIN 16.3 g/dL (12.0-18.0); MEAN CORPUSCULAR HEMOGLOBIN 29 pg (27-31); MEAN CORPUSCULAR HGB CONC 33 g/dL (33-37); MEAN CORPUSCULAR VOLUME 89 fL (80-94); PLATELET COUNT (AUTO) 328 K/uL (140-450); RED BLOOD CELL COUNT(AUTO) 5.63 MIL/uL (4.20-6.10); RED CELL DISTRIBUTION WIDTH 17.1 % (11.6-13.7); WHITE BLOOD COUNT (AUTO) 19.6 K/uL (4.8-10.8)
--- NOTE | 2017-02-26 05:40 | NUR ---
DR. MCDANIEL AT BED SIDE. UPDATED DR. MCDANIEL WITH HIS CONDITION. WILL FOLLOW WITH ANY ORDERS.
[2017-02-26 05:57] LABS: ANION GAP 15.4 (8-16); CARBON DIOXIDE 22.1 mmol/L (21-32); CREATININE 1.7 mg/dL (0.7-1.3); POTASSIUM 3.5 mmol/L (3.5-5.1)
[2017-02-26 06:03] LABS: MAGNESIUM 2.3 mg/dL (1.8-2.4); PHOSPHORUS 3.4 mg/dL (2.5-4.9)
--- NOTE | 2017-02-26 06:18 | NUR ---
DR. JANSEN MADE AWARE OF PT'S PROGRESSIVE WEIGHT INCREASE.
[2017-02-26 06:39] LABS: LYMPHOCYTES % (MANUAL) 10 % (20-46); MONOCYTES % (MANUAL) 7 % (5-12)
--- NOTE | 2017-02-26 07:09 | NUR ---
REPORT GIVEN TO ELI SANZ FOR CONTINUITY OF CARE. PT HAS NO ACUTE DISTRESS AT THIS TIME.
--- NOTE | 2017-02-26 07:10 | NUR ---
RECEIVED REPORT FROM ELI CHOWDHURY. PT A/O TO SELF ONLY. SLEEPING, DIFFICULT TO AWAKEN. RESPONSIVE TO PAINFUL STIMULUS. UNABLE TO FOLLOW COMMAND. BILATERAL PERRL NOTED. CONTINUE ON 2 L O2 VIA NC. TOLERATING WELL. ST ON MONITOR. EXTREME WEAKNESS NOTED. PT REQUIRES 2+ PEOPLE ASSIST WITH ADLS, TURNS. 22 GAUGE R HAND NOTED. INTACT AND PATENT. ABDOMEN DISTENDED, NONTENDER. BOWEL SOUND PRESENT X [address] SAUER CATHETER IN PLACE, DRAINING DARK WOODROW URINE. RECTAL BAG IN PLACE. SAFETY PRECAUTION IN PLACE. CALL LIGHT WITHIN REACH. BED AT LOWEST SETTING. WILL CONTINUE TO MONITOR.
--- NOTE | 2017-02-26 07:49 | NUR ---
UNABLE TO FEED PT BREAKFAST. PT IS NOT ALERT AND AWAKE ENOUGH. ONLY AWAKE BRIEFLY WITH PAINFUL STIMULUS. HOLDING BREAKFAST AT THIS TIME. WILL NOTIFY
--- NOTE | 2017-02-26 08:00 | NUR ---
AT BEDSIDE TO SEE PT. WILL F/U WITH NEW ORDERS.
[2017-02-26] MEDS: LACTULOSE 20 GM/30 ML UDC NG SCH ×2 (08:31→13:00)
[2017-02-26] MEDS: RIFAXIMIN 550 MG TAB NG SCH (08:33)
[2017-02-26] MEDS: LACTOBACILLUS RHAMNOSUS GG 1 EACH CAP NG SCH (08:33)
[2017-02-26] MEDS: VIREAD 300 MG NG SCH (08:33)
[2017-02-26] MEDS: levETIRAcetam 100 MG/ML ORASYR NG SCH (08:33)
[2017-02-26] MEDS: SODIUM PHOS / POTASSIUM PHOS 1 PKT PDR NG SCH (08:34)
[2017-02-26] MEDS: cloNIDine 0.1 MG TAB NG SCH ×3 (08:35→16:00)
--- NOTE | 2017-02-26 08:35 | NUR ---
MEDICATION ADMINISTERED ORDERED. TOLERATED WELL. 0 RESIDUAL IN OGT. POSITIVE AUSCULTATION FOR PLACEMENT.
[2017-02-26] MEDS ORDERED: FUROSEMIDE 20 MG/2 ML VIAL IVP SCH (09:00)
--- NOTE | 2017-02-26 09:19 | NUR ---
PT NOTED WITH SATURATION OF 88% ON 2 L NC. PT NOTED TO BE A MOUTH BREATHER. RT NOTIFIED TO PLACE PT ON FACE MASK.
--- NOTE | 2017-02-26 09:23 | NUR ---
PLACED PT ON VENTI MASK AT 35% DUE TO LOW O2 SAT OF 88%
--- NOTE | 2017-02-26 09:33 | NUR ---
PT ON VENTI MASK 35% SATURATING AT 89%-90%. ACCESSORY MUSCLE USAGE NOTED. APPEARS TO HAVE LABORED BREATHING. DR. MCDANIEL NOTIFIED. RT NOTIFIED.
--- NOTE | 2017-02-26 09:40 | NUR ---
DR. MCDANIEL AT BEDSIDE, RT AT BEDSIDE. WILL F/U WITH NEW ORDERS.
--- NOTE | 2017-02-26 09:45 | NUR ---
ABG DRAWN ON RB WITHOUT INCIDENT AND DR. MCDANIEL AT BEDSIDE
--- NOTE | 2017-02-26 09:55 | NUR ---
pt placed on young v60 bipap for respiratory distress settings are 12\6 rr 12 fio2 80% alarms on and functioning properly, ambu bag at side of bipap and bipap is plugged into red outlet, b\s are coarse bilaterally, pt is wearing full face mask large and skin protetic gel is in place.
--- NOTE | 2017-02-26 10:45 | NUR ---
PT SATURATING AT 99% USING BIPAP. CONTINUE TO NOTE ACCESSORY MUSCLE USE. WILL CONTINUE TO MONITOR.
--- NOTE | 2017-02-26 10:55 | NUR ---
bipap check, pt is resting
--- NOTE | 2017-02-26 11:06 | NUR ---
02/26/17 RD FOLLOW-UP ASSESSMENT COMPLETED PLEASE REFER TO NUTRITION ASSESSMENT UNDER CARE ACTIVITY FOR ESTIMATED NUTRITIONAL NEEDS. 1. IF PATIENT TO REMAIN ON BI-PAP/LETHARGIC, CONSIDER ENTERAL NUTRITION SUPPORT VIA OGT: FIBERSOURCE HN TO START SLOW AT 30 ML/HR - TO REMAIN SLOW UNTIL LABS BECOME MORE STABLE. (PROVIDES 864 KCAL, 43 G PROTEIN, 588 ML FREE WATER - MEETS 38% KCAL+PROTEIN ESTIMATED NEEDS) 2. RD TO FOLLOW-UP 2-3 DAYS, HIGH RISK KLARISSA AL RD
--- NOTE | 2017-02-26 11:30 | NUR ---
RECEIVED CALL FROM SISTER REQUESTING TO SPEAK TO . NOTIFIED.
[2017-02-26] MEDS: DEXTROSE 10% 1,000 ML IV SCH (11:36)
--- NOTE | 2017-02-26 11:43 | NUR ---
TUBE FEEDING ORDERS CLARIFIED. WILL RECEIVE CONTINUOUS 30 CC/HR TUBE FEEDING TOLERATED INCLUDING 150 CC Q4H WATER FLUSH NOT Q8H.
--- NOTE | 2017-02-26 11:59 | NUR ---
AT BEDSIDE TO CHECK BG. BG 60. PT NOTED WITH BRADYCARDIA IN 30S. UNABLE TO PALPITATE PULSE. UNRESPONSIVE TO ANY STIMULI. ROSA ALVA CALLED. CPR STARTED. SEE ROSA ALVA RECORD.
--- NOTE | 2017-02-26 12:00 | NUR ---
called to bedside for bipap rick harper called and cpr was started bagged with 100% fio2 and acls drugs given at bedside at 1220 dr. perea ended rick harper
--- NOTE | 2017-02-26 12:10 | NUR ---
FAMILY NOTIFIED OF CURRENT STATUS
--- NOTE | 2017-02-26 12:15 | NUR ---
FAMILY OUTSIDE. DR. VERGARA OUTSIDE TO SPEAK WITH FAMILY.
--- NOTE | 2017-02-26 12:20 | NUR ---
NO PULSE, NO SPONTANEOUS RESPIRATION. TIME OF CALLED BY DR. DUTTON.
--- NOTE | 2017-02-26 12:26 | NUR ---
CALLED TO ICU FOR CODE BLUE AT 1228 ROSC RETURNED ON ICU PT BED 5 CPR AND ACLS DRUGS GIVEN AND PT WAS REINTUBATED AT 1230 BAGGED WITH 100% FIO2 BY BOTH AND RT. VASQUEZ AT 1343 STOPPED BAGGING PT AND EXTUBATED PT PER FAMILY AND DR. MCDANIEL. DR MCDANIEL PRONOUNCED PT AT 1356
--- NOTE | 2017-02-26 12:28 | NUR ---
ROSC OBTAINED. DR. DUTTON AT BEDSIDE. PULSE OBTAINED WITH DOPPLER. CODE BLUE CALLED. SEE CODE BLUE SHEET FOR DETAILS.
[2017-02-26] MEDS ORDERED: NOREPINEPHRINE 4 MG in DEXTROSE 5% 250 ML IV PRN (12:30)
--- NOTE | 2017-02-26 12:38 | NUR ---
HR 84, PULSES PALPABLE. PT INTUBATED CONNECTED TO AMBU BAG BY RT. RT AT BEDSIDE TO BAG PT. PER, DR. DUTTON AND DR. VERGARA PUPILS NONREACTIVE TO LIGHT. FAMILY AWARE OF STATUS.
--- NOTE | 2017-02-26 13:08 | NUR ---
ORDER RECEIVED FROM DR. MCDANIEL OF CHANGE OF CODE STATUS TO DNR. FAMILY AWARE. PER MD, RT TO CONTINUE BAGGING PT UNTIL LOSS OF PULSE.
--- NOTE | 2017-02-26 13:32 | NUR ---
RT AT BEDSIDE CONTINUING WITH BAGGING PT. CONTINUE TO OBTAIN PULSE FROM DOPPLER. WILL CONTINUE TO MONITOR
[2017-02-26] MEDS ORDERED: HYDROmorphone 1 MG/ML AMP IVP SCH (13:37)
[2017-02-26] MEDS ORDERED: LORazepam 2 MG/ML VIAL IVP SCH (13:39)
--- NOTE | 2017-02-26 13:40 | NUR ---
UNABLE TO OBTAIN PULSE BY DOPPLER. ASYSTOLE NOTED ON MONITOR. DR. JONAS REYNA.
--- NOTE | 2017-02-26 13:43 | NUR ---
DR. MCDANIEL AT BEDSIDE TO SEE PT. PT NOTED BRADYCARDIA IN 40S. DR. MCDANIEL SPOKE WITH FAMILY. FAMILY AGREED TO EXTUBATE PT. WILL CONTINUE TO MONITOR. Addendum: 02/26/17 at 1401 by Celio Solis RN 1343 RT STOPPED BAGGING ACCORDING TO MD ORDER AND FAMILY'S WISHES. EXTUBATED ORDERED.
--- NOTE | 2017-02-26 13:50 | NUR ---
[facility] NOTIFIED A NEW CASE. PT IS RULED OUT A CANDIDATE D/T HIS HIGH RISK.
--- NOTE | 2017-02-26 13:56 | NUR ---
TIME OF CALLED BY DR. MCDANIEL @ 6641.
--- NOTE | 2017-02-26 13:56 | NUR ---
NOTED WITH ASYSTOLE AND NO PULSE, MD NOTIFIED.
--- NOTE | 2017-02-26 14:10 | NUR ---
BACTERIOLOGY RESEARCH ASSISTANT NOTIFIED. WILL BE RECEIVING CALL BACK FROM [employer] SUPERVISOR.
--- NOTE | 2017-02-26 14:30 | NUR ---
SPOKE TO OVERSE[employer]ER ALLY SOLIS. PT IS NOT A OVERSEAMER CASE. BODY RELEASE TO US. AWAITING FAMILY DECISION ON MORTUARY
--- NOTE | 2017-02-26 15:00 | NUR ---
SPOKE TO MORTUARY ([facility]). BODY RELEASE FORM SIGNED BY LISBETH BARLOW AND FAXED. AWAITING MORTUARY TO [employer]PA[employer]ER PATIENT.
--- NOTE | 2017-02-26 15:30 | NUR ---
ESCORTED PT'S SISTER TO SAMPLE MAKER ALL MEDICATION THAT WE RECEIVED FROM HOME. MEDICATION SIGNED FOR BY SISTER STEVE. ALL OTHER BELONGING GIVEN TO MOM.
--- NOTE | 2017-02-26 15:45 | NUR ---
FAMILY LEFT. WILL ALERT FAMILY WHEN MORTUARY ARRIVES.
--- NOTE | 2017-02-26 15:50 | NUR ---
POSTMORTEM CARE PROVIDED TO PATIENT. IV OF R HAND REMOVED. CANNULA INTACT. SAUER CATHETER BAG REMOVED. RECTAL BAG REMOVED. BED BATH PROVIDED TO PATIENT. PATIENT PLACED IN BODY BAG. AWAITING MORTUARY.
--- NOTE | 2017-02-26 17:54 | NUR ---
MORTUARY AT BEDSIDE TO TAKE BODY.
--- NOTE | 2017-02-26 17:58 | NUR ---
SISTER STEVE CALLED REQUESTED. NO ANSWER AT THIS TIME. MOTHER CAIN CALLED REQUESTED. VOICE MAIL LEFT.
== END 2017-02-26 13:56 | disposition expired | DRG 871 ==
LOC: MED 17:35 → MTU 20:29 → MIC 02-24 09:00
PROVIDERS: ADMIT Student in an Organized Health Care Education/Training Program; ATTEND Student in an Organized Health Care Education/Training Program
PROC: 5A1935Z Respiratory Ventilation, Less than 24 Consecutive Hours (ICD-10-PCS; principal; 2017-02-26)
PROC: 0BH17EZ Insertion of Endotracheal Airway into Trachea, Via Natural or Artificial Opening (ICD-10-PCS; 2017-02-26)
PROC: 5A12012 Performance of Cardiac Output, Single, Manual (ICD-10-PCS; 2017-02-26)
DX: A41.9 Sepsis, unspecified organism (principal); N17.0 Acute kidney failure with tubular necrosis; K81.0 Acute cholecystitis; E44.0 Moderate protein-calorie malnutrition; E11.65 Type 2 diabetes mellitus with hyperglycemia; D68.59 Other primary thrombophilia; I47.1 Supraventricular tachycardia; E83.42 Hypomagnesemia; B16.9 Acute hepatitis B without delta-agent and without hepatic coma; I46.9 Cardiac arrest, cause unspecified; E83.39 Other disorders of phosphorus metabolism; K72.90 Hepatic failure, unspecified without coma; R65.20 Severe sepsis without septic shock; J45.909 Unspecified asthma, uncomplicated; I10 Essential (primary) hypertension; E66.9 Obesity, unspecified; R31.9 Hematuria, unspecified; E78.5 Hyperlipidemia, unspecified; G40.909 Epilepsy, unspecified, not intractable, without status epilepticus; E87.5 Hyperkalemia; T83.098A Other mechanical complication of other urinary catheter, initial encounter; Y83.8 Other surgical procedures as the cause of abnormal reaction of the patient, or of later complication, without mention of misadventure at the time of the procedure; Y92.89 Other specified places as the place of occurrence of the external cause; Z68.27 Body mass index [BMI] 27.0-27.9, adult; Z79.4 Long term (current) use of insulin
CPT/HCPCS: 36415; 36600; 70450; 71010; 76705; 76770; 80048; 80053; 80076; 80305; 81001; 82140; 82150; 82803; 82948; 83036; 83605; 83690; 83735; 83880; 84100; 84436; 84439; 84443; 84479; 84484; 85025; 85610; 85730; 86704; 86706; 86708; 86709; 86803; 87040; 87081; 87086; 87340; 92950; 93005; 93880; 93925; 93970; 94660; 96361; 96365; 96375; 99285; G0482; J0360; J0696; J1815; J1885; J1940; J1953; J2001; J2270; J3430; J3475; J3480; J3490; J7030; J7042; J7060; Q0092